=== PATIENT | female | born 1945 | race Caucasian/White ===

== ENCOUNTER 2017-09-17 23:06 | Observation (INO) | payer MEDICARE ==
[2017-09-17 23:15] VITALS: O2SAT 98
[2017-09-17 23:27] LABS: AUTOMATED NEUTROPHIL # 3.5 TH/MM3 (1.8-7.7); BASOPHIL # 0.1 TH/MM3 (0-0.2); BASOPHIL % 1.4 % (0.0-2.0); EOSINOPHIL # 0.4 TH/MM3 (0-0.4); HEMATOCRIT 40.2 % (35.0-46.0); LYMPH % 44.4 % (9.0-44.0); LYMPHOCYTE # 3.9 TH/MM3 (1.0-4.8); MEAN CELL VOLUME 85.4 FL (80.0-100.0); MEAN CORPUSCULAR HEMOGLOBIN 27.1 PG (27.0-34.0); MEAN CORPUSCULAR HGB CONC 31.7 % (32.0-36.0); MONO % 10.8 % (0.0-8.0); NEUT % 39.4 % (16.0-70.0); PLATELET COUNT 326 TH/MM3 (150-450); RED BLOOD COUNT 4.71 MIL/MM3 (4.00-5.30); RED CELL DISTRIBUTION WIDTH 14.3 % (11.6-17.2); WHITE BLOOD COUNT 8.9 TH/MM3 (4.0-11.0)
[2017-09-17] MEDS: NITROGLYCERIN 0.4 MG SL 25 TABS/BTL SL SCH ×3 (23:29→23:51)
[2017-09-17 23:30] VITALS: BP_SYST 140; BP_SYST 145; BP_DIAS 80; BP_DIAS 89; PULSE 72; RESP 20; O2SAT 98
[2017-09-17] MEDS: SODIUM CHLOR 0.9% 1000 ML INJ 1,000 ML IV SCH (23:30)
[2017-09-17] MEDS ORDERED: SODIUM CHLORIDE 0.9% FLUSH 10 ML FLUSH IVF PRN (23:30)
[2017-09-17 23:34] LABS: HEMO FLAGS DIFF FINAL
--- NOTE | 2017-09-17 23:35 | PD ---
HPI Chief Complaint: Chest Pain Time Seen by Provider: 23:17 Travel History International Travel<30 days: No Contact w/Intl Traveler<30days: No Traveled to known affect area: No History of Present Illness HPI 72-year-old female presents to the emergency department by private transportation for complaint of sharp stabbing right-sided chest pain. At home pain as 10 over 10 intensity. Hasn't really pain is 5/10 in intensity. Patient states she's had symptoms 2 weeks. Patient was seen by her primary care provider on Tuesday and diagnosed with pleurisy. Patient had a chest x- ray. Patient jem took 650 mg of aspirin prior to arrival to the emergency department. Pain radiates into her back and into her right upper extremity. No sweats no nausea vomiting but did experience shortness of breath this evening. No recent long distance travel protracted bedrest her surgical procedure no lower extremity or upper extremity swelling. Patient denies any abdominal pain. PFSH Past Medical History Narrative Medical Pleurisy; nursing notes reviewed Social History Tobacco Use: No Allergies-Medications (Allergen,Severity, Reaction): Coded Allergies: Sulfa (Sulfonamide Antibiotics) (Verified Allergy, Unknown, Anaphylaxis, 09/18/17) Reported Meds & Prescriptions Reported Meds & Active Scripts Active Reported Yuvafem Vaginal Tab (Estradiol Vaginal Tab) 10 Mcg Tab 10 Mcg VAGINAL 2XWEEK Fosamax (Alendronate Sodium) 70 Mg Tab 70 Mg PO Q7D Meloxicam 15 Mg Tab 15 Mg PO DAILY Review of Systems Except as stated in HPI: all other systems reviewed are Neg Physical Exam Narrative GENERAL: Well-developed well-nourished female in no acute distress no respiratory distress SKIN: Warm and dry. HEAD: Normocephalic. EYES: No scleral icterus. No injection or drainage. NECK: Supple, trachea midline. No JVD or lymphadenopathy. CARDIOVASCULAR: Regular rate and rhythm without murmurs, gallops, or rubs. RESPIRATORY: Breath sounds equal bilaterally. No accessory muscle use. GASTROINTESTINAL: Abdomen soft, non-tender, nondistended. MUSCULOSKELETAL: No cyanosis, or edema. BACK: Nontender without obvious deformity. No CVA tenderness. Data Data Last Documented VS Vital Signs Date Time Temp Pulse Resp B/P (MAP) Pulse Ox O2 Delivery O2 Flow Rate FiO2 09/18/17 00:00 71 20 99/63 (75) 97 12/16/17 23:30 Room Air Orders Orders Electrocardiogram (09/17/17 23:18) Basic Metabolic Panel (Bmp) (09/17/17 23:18) Ckmb (Isoenzyme) Profile (09/17/17 23:18) Complete Blood Count With Diff (09/17/17 23:18) Magnesium (Mg) (09/17/17 23:18) Prothrombin Time / Inr (Pt) (09/17/17 23:18) Act Partial Throm Time (Ptt) (09/17/17 23:18) Troponin I (09/17/17 23:18) Chest, Single Ap (09/17/17 23:18) Ecg Monitoring (09/17/17 23:18) Bilateral Bp Monitoring (09/17/17 23:18) Iv Access Insert/Monitor (09/17/17 23:18) Oximetry (09/17/17 23:18) Oxygen Administration (09/17/17 23:18) Sodium Chloride 0.9% Flush (Ns Flush) (09/17/17 23:30) Nitroglycerin Sl (Nitrostat Sl) (09/17/17 23:30) Sodium Chlor 0.9% 1000 Ml Inj (Ns 1000 M (09/17/17 23:30) CKMB (09/17/17 23:15) CKMB% (09/17/17 23:15) D-Dimer (09/17/17 23:50) Labs Laboratory Tests Test 09/17/17 23:15 White Blood Count 8.9 TH/MM3 Red Blood Count 4.71 MIL/MM3 Hemoglobin 12.7 GM/DL Hematocrit 40.2 % Mean Corpuscular Volume 85.4 FL Mean Corpuscular Hemoglobin 27.1 PG Mean Corpuscular Hemoglobin Concent 31.7 % Red Cell Distribution Width 14.3 % Platelet Count 326 TH/MM3 Mean Platelet Volume 8.8 FL Neutrophils (%) (Auto) 39.4 % Lymphocytes (%) (Auto) 44.4 % Monocytes (%) (Auto) 10.8 % Eosinophils (%) (Auto) 4.0 % Basophils (%) (Auto) 1.4 % Neutrophils # (Auto) 3.5 TH/MM3 Lymphocytes # (Auto) 3.9 TH/MM3 Monocytes # (Auto) 1.0 TH/MM3 Eosinophils # (Auto) 0.4 TH/MM3 Basophils # (Auto) 0.1 TH/MM3 CBC Comment DIFF FINAL Differential Comment Prothrombin Time 11.6 SEC Prothromb Time International Ratio 1.1 RATIO Activated Partial Thromboplast Time 24.9 SEC Blood Urea Nitrogen 14 MG/DL Creatinine 0.72 MG/DL Random Glucose 100 MG/DL Calcium Level 8.8 MG/DL Magnesium Level 2.4 MG/DL Sodium Level 138 MEQ/L Potassium Level 3.7 MEQ/L Chloride Level 104 MEQ/L Carbon Dioxide Level 26.9 MEQ/L Anion Gap 7 MEQ/L Estimat Glomerular Filtration Rate 79 ML/MIN Total Creatine Kinase 132 U/L Creatine Kinase MB 2.1 NG/ML Troponin I LESS THAN 0.02 NG/ML Exceptions Acute Myocardial Infarction ASA Not Given on Arrival: Already taken by patient 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 MDM Medical Decision Making Medical Screen Exam Complete: Yes Emergency Medical Condition: Yes Medical Record Reviewed: Yes Differential Diagnosis Chest pain, atypical chest pain, ACS, HI, PE, pneumothorax, pleurisy, costochondritis, pneumonia, pancreatitis, biliary colic, aortic dissection Narrative Course Patient placed on playground monitor with continuous pulse oximetry IV access obtained patient are taken aspirin prior to arrival to the emergency department supplemental nitroglycerin ordered @ 1200 am cp free after x 2 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
[2017-09-17 23:36] LABS: CHLORIDE 104 MEQ/L (98-107); POTASSIUM 3.7 MEQ/L (3.5-5.1); SODIUM (NA) 138 MEQ/L (136-145)
[2017-09-17 23:39] LABS: ANION GAP 7 MEQ/L (5-15); BICARBONATE 26.9 MEQ/L (21.0-32.0); BLOOD UREA NITROGEN 14 MG/DL (7-18); MAGNESIUM 2.4 MG/DL (1.5-2.5)
[2017-09-17 23:41] LABS: APTT (PATIENT) 24.9 SEC (24.3-30.1); INTERNATIONAL NORMALIZED RATIO 1.1 RATIO; PROTHROMBIN TIME - PATIENT 11.6 SEC (9.8-11.6)
[2017-09-17 23:42] LABS: GLOMERULAR FILTRATION RATE 79 ML/MIN (>89)
[2017-09-17 23:46] LABS: CREATINE KINASE 132 U/L (26-192)
--- NOTE | 2017-09-17 23:47 | RADRPT ---
EXAM DATE/TIME: 09/17/2017 23:40 [facility] COMPARISON: No previous studies available for comparison. INDICATIONS : Chest pain. MEDICAL HISTORY : None. SURGICAL HISTORY : None. ENCOUNTER: Initial ACUITY: 1 day PAIN SCORE: 8/10 LOCATION: Bilateral chest FINDINGS: A single view of the chest demonstrates the lungs to be symmetrically aerated without evidence of mas s, infiltrate or effusion. The cardiomediastinal contours are unremarkable. Osseous structures are intact. CONCLUSION: No evidence of acute cardiopulmonary disease. Dane Atkinson MD on September 17, 2017 at 23:45 Board Certified Radiologist. This report was verified electronically.
[2017-09-17 23:58] LABS: CKMB 2.1 NG/ML (0.5-3.6)
[2017-09-18] VITALS (9 sets, daily range): BP systolic 89–108; BP diastolic 55–76; PULSE 69–77; RESP 18–20; TEMP 97.2–98.7; O2SAT 68–99
[2017-09-18] MEDS ORDERED: MELO15TA20 PO (00:17)
[2017-09-18] MEDS ORDERED: ESTR1TAB78 VAGINAL (00:17)
[2017-09-18] MEDS ORDERED: FOSA70TA PO (00:17)
[2017-09-18] MEDS ORDERED: IOHEXOL 350 MG/ML 10 ML VIAL (for RAD DIAG) IVCONTRAST ONE (00:35)
[2017-09-18] MEDS ORDERED: SODIUM CHLORIDE 0.9% FLUSH 10 ML FLUSH IV FLUSH PRN (00:45)
[2017-09-18] MEDS ORDERED: NITROGLYCERIN 0.4 MG SL 25 TABS/BTL SL PRN (00:45)
[2017-09-18] MEDS ORDERED: SODIUM CHLOR 0.9% 1000 ML INJ 1,000 ML IV ONE (01:15)
--- NOTE | 2017-09-18 01:52 | RADRPT ---
EXAM DATE/TIME: 09/18/2017 01:28 [facility] COMPARISON: No previous studies available for comparison. INDICATIONS : Recent diagnosis of pleurisy. Right side chest pain and shortness of breath. IV CONTRAST: 74 cc Omnipaque 350 (iohexol) IV RADIATION DOSE: 6.46 CTDIvol (mGy) MEDICAL HISTORY : None SURGICAL HISTORY : Tubal ligation. ENCOUNTER: Initial ACUITY: 2 weeks PAIN SCALE: 5/10 LOCATION: Right chest TECHNIQUE: Volumetric scanning of the chest was performed using a pulmonary embolism protocol MIP images were re constructed. Using automated exposure control and adjustment of the mA and/or kV according to patien t size, radiation dose was kept as low as reasonably achievable to obtain optimal diagnostic quality images. DICOM format image data is available electronically for review and comparison. Follow-up recommendations for detected pulmonary nodules are based at a minimum on nodule size and pa tient risk factors according to Fleischner Society Guidelines. FINDINGS: PULMONARY ARTERIES: No filling defects are seen in the pulmonary arteries through the segmental level. LUNGS: Mild linear atelectasis and/or scarring of the left lung base. No acute pneumonia seen. No pneumothor ax. PLEURAE: There is no pleural thickening or pleural effusion. MEDIASTINUM: There is good visualization of the great vessels of the middle mediastinum. No evidence of mediastin al or hilar adenopathy/mass. Normal heart size. There is coronary artery calcification, especially le ft main and left anterior descending. MUSCULOSKELETAL: Within normal limits for patient age. MISCELLANEOUS: The visualized upper abdominal organs demonstrate no acute abnormality. CONCLUSION: 1. No pulmonary embolus. 2. Mild atelectasis. 3. Coronary artery calcification. Dane Atkinson MD on September 18, 2017 at 1:48 Board Certified Radiologist. This report was verified electronically.
[2017-09-18 04:31] LABS: CREATINE KINASE 122 U/L (26-192)
[2017-09-18 05:21] LABS: CKMB 1.7 NG/ML (0.5-3.6)
--- NOTE | 2017-09-18 07:46 | HHI.HP ---
[facility] Arsenio Chacon MD Admission Diagnosis Chest pain Diagnoses: (1) Chest pain Diagnosis: Principal Chief Complaint: Chest pain Travel History International Travel<30 Days: No Contact w/Intl Traveler <30 Da: No Traveled to Known Affected Are: No History of Present Illness Mrs. Navarro is a 72-year-old female patient with a known medical history of chronic back pain who presented to the ED with complaints of chest pain. Patient states that around 2230 last evening she was having an argument with her when she developed this sudden pain that started in her left sided back area and radiated to her right breast. Patient states that the pain was sharp and stabbing in nature, "felt like someone was stabbing her through the scapula". Pain was worse with inspiration and coughing. Patient took two aspirin at home before arrival and Nitroglycerin was given in the ED which seemed to relieve the pain. She does state that she has been having intermittent pain the past week and has seen her PCP who performed a CXR which reportedly showed pleurisy. Patient was given Meloxicam with little relief. Does admit to a chronic cough. Patient denies any recent illness including fever , chills, headache, sore throat, shortness of breath, abdominal pain, n/v/d or dysuria. Denies any previous stress testing or following with a rn ostomy. PCP is Dr. Chacon. Review of Systems Constitutional: DENIES: Fever, Chills Eyes: DENIES: Blurred vision, Diplopia Respiratory: COMPLAINS OF: Cough, DENIES: Sputum production, Shortness of breath Cardiovascular: COMPLAINS OF: Chest pain, DENIES: Palpitations Gastrointestinal: DENIES: Abdominal pain, Black stools, Bloody stools, Constipation, Diarrhea, Nausea, Vomiting Musculoskeletal: COMPLAINS OF: Back pain Hematologic/lymphatic: DENIES: Bruising Psychiatric: DENIES: Anxiety Except as stated in HPI: all other systems reviewed are Neg Past Family Social History Past Medical History Chronic back pain Past Surgical History Kyphoplasty Bilateral cataracts Tubal ligation Reported Medications Reported Meds & Active Scripts Active Reported Yuvafem Vaginal Tab (Estradiol Vaginal Tab) 10 Mcg Tab 10 Mcg VAGINAL 2XWEEK Fosamax (Alendronate Sodium) 70 Mg Tab 70 Mg PO Q7D Meloxicam 15 Mg Tab 15 Mg PO DAILY Allergies: Coded Allergies: Sulfa (Sulfonamide Antibiotics) (Verified Allergy, Unknown, Anaphylaxis, 09/18/17) Active Ordered Medications Current Medications Medications (Trade) Dose Ordered Sig/Margaret Route Start Time Stop Time Status Last Admin Sodium Chloride 1,000 ml @ 100 mls/hr Q10H IV 09/17/17 23:30 09/17/17 23:30 (NS Flush) 2 ml UNSCH PRN IV FLUSH 09/18/17 00:45 (NS Flush) 2 ml BID IV FLUSH 09/18/17 09:00 (Nitrostat Sl) 0.4 mg Q5M PRN SL 09/18/17 00:45 (Aspirin) 325 mg DAILY PO 09/18/17 09:00 (Toradol Inj) 30 mg ONCE ONCE IV PUSH 09/18/17 08:00 09/18/17 08:01 UNV Family History Maternal medical history significant for cardiovascular disease. Paternal medical history significant for lung cancer. Social History Denies any tobacco use. Admits to occasional alcohol use. Denies any illicit drug use. Physical Exam Vital Signs Vital Signs Date Time Temp Pulse Resp B/P (MAP) Pulse Ox O2 Delivery O2 Flow Rate FiO2 09/18/17 02:10 98 21 09/18/17 01:57 97.2 77 20 89/56 (67) 99 09/18/17 01:42 74 20 108/76 (87) 98 09/18/17 01:15 72 20 106/76 (86) 98 09/18/17 00:49 72 20 93/62 (72) 98 09/18/17 00:17 70 20 92/58 (69) 97 09/18/17 00:00 71 20 99/63 (75) 97 09/17/17 23:58 70 20 98 09/17/17 23:30 72 20 140/89 (106) 98 Room Air 145/80 (101) 09/17/17 23:15 98 Room Air 09/17/17 23:15 98 Room Air Physical Exam GENERAL: This is a well-nourished, well-developed patient, in no apparent distress. SKIN: No rashes, ecchymoses or lesions. Warm and dry. HEAD: Atraumatic. Normocephalic. Pupils equal round and reactive. Extraocular motions intact. No scleral icterus. No injection or drainage. Nose without bleeding. Throat without erythema, tonsillar hypertrophy or exudate. Uvula midline. Airway patent. NECK: Trachea midline. No JVD. Supple. CARDIOVASCULAR: Regular rate and rhythm without murmurs, gallops, or rubs. Reproducible pain to lateral right rib area. RESPIRATORY: Clear to auscultation. Breath sounds equal bilaterally. No wheezes , rales, or rhonchi. GASTROINTESTINAL: Abdomen soft, non-tender, nondistended. No guarding. MUSCULOSKELETAL: Extremities without clubbing, cyanosis, or edema. No joint tenderness, effusion, or edema noted. NEUROLOGICAL: Awake and alert. Cranial nerves II through XII intact. Motor and sensory grossly within normal limits. Five out of 5 muscle strength in all muscle groups. Normal speech. Laboratory Laboratory Tests Test 09/17/17 23:15 09/18/17 03:15 09/18/17 06:19 White Blood Count 8.9 Red Blood Count 4.71 Hemoglobin 12.7 Hematocrit 40.2 Mean Corpuscular Volume 85.4 Mean Corpuscular Hemoglobin 27.1 Mean Corpuscular Hemoglobin Concent 31.7 Red Cell Distribution Width 14.3 Platelet Count 326 Mean Platelet Volume 8.8 Neutrophils (%) (Auto) 39.4 Lymphocytes (%) (Auto) 44.4 Monocytes (%) (Auto) 10.8 Eosinophils (%) (Auto) 4.0 Basophils (%) (Auto) 1.4 Neutrophils # (Auto) 3.5 Lymphocytes # (Auto) 3.9 Monocytes # (Auto) 1.0 Eosinophils # (Auto) 0.4 Basophils # (Auto) 0.1 CBC Comment DIFF FINAL Differential Comment Prothrombin Time 11.6 Prothromb Time International Ratio 1.1 Activated Partial Thromboplast Time 24.9 D-Dimer Quantitative (PE/DVT) 0.55 Blood Urea Nitrogen 14 Creatinine 0.72 Random Glucose 100 Calcium Level 8.8 Magnesium Level 2.4 Sodium Level 138 Potassium Level 3.7 Chloride Level 104 Carbon Dioxide Level 26.9 Anion Gap 7 Estimat Glomerular Filtration Rate 79 Total Creatine Kinase 132 122 Creatine Kinase MB 2.1 1.7 Troponin I LESS THAN 0.02 LESS THAN 0.02 Result Diagram: 09/17/17 2315 09/17/[address] Angiography 09/18/17 0000 Signed Impressions: Service Date/Time: Monday, September 18, 2017 01:28 - CONCLUSION: 1. No pulmonary embolus. 2. Mild atelectasis. 3. Coronary artery calcification. Dane Atkinson MD Chest X-Ray 09/17/17 2318 Signed Impressions: Service Date/Time: Sunday, September 17, 2017 23:40 - CONCLUSION: No evidence of acute cardiopulmonary disease. Dane Atkinson MD Septic Shock Reassessment Septic shock perfusion: reassessment completed Caprini VTE Risk Assessment Caprini VTE Risk Assessment: Mod/High Risk (score >= 2) Caprini Risk Assessment Model Point Value = 1 Point Value = 2 Point Value = 3 Point Value = 5 Age 41-60 Minor surgery BMI > 25 kg/m2 Swollen legs Varicose veins or History of unexplained or recurrent spontaneous Oral contraceptives or hormone replacement Sepsis (< 1 month) Serious lung disease, including pneumonia (< 1 month) Abnormal pulmonary function Acute myocardial infarction Congestive heart failure (< 1 month) History of inflammatory bowel disease Medical patient at bed rest Age 61-74 Arthroscopic surgery Major open surgery (> 45 min) Laparoscopic surgery (> 45 min) Malignancy Confined to bed (> 72 hours) Immobilizing plaster cast Central venous access Age >= 75 History of VTE Family history of VTE Factor V Leiden Prothrombin [id number] Lupus anticoagulant Anticardiolipin antibodies Elevated serum homocysteine Heparin-induced thrombocytopenia Other congenital or acquired thrombophilia Stroke (< 1 month) Elective arthroplasty Hip, pelvis, or leg fracture Acute spinal cord injury (< 1 month) Prophylaxis Regimen Total Risk Factor Score Risk Level Prophylaxis Regimen 0-1 Low Early ambulation 2 Moderate Order ONE of the following: *Sequential Compression Device (SCD) *Heparin 5000 units SQ BID 3-4 Higher Order ONE of the following medications: *Heparin 5000 units SQ TID *Enoxaparin/Lovenox 40 mg SQ daily (WT < 150 kg, CrCl > 30 mL/min) *Enoxaparin/Lovenox 30 mg SQ daily (WT < 150 kg, CrCl > 10-29 mL/min) *Enoxaparin/Lovenox 30 mg SQ BID (WT < 150 kg, CrCl > 30 mL/min) AND/OR *Sequential Compression Device (SCD) 5 or more Highest Order ONE of the following medications: *Heparin 5000 units SQ TID (Preferred with Epidurals) *Enoxaparin/Lovenox 40 mg SQ daily (WT < 150 kg, CrCl > 30 mL/min) *Enoxaparin/Lovenox 30 mg SQ daily (WT < 150 kg, CrCl > 10-29 mL/min) *Enoxaparin/Lovenox 30 mg SQ BID (WT < 150 kg, CrCl > 30 mL/min) AND *Sequential Compression Device (SCD) Assessment and Plan Problem List: (1) Chest pain ICD Code: R07.9 - Chest pain, unspecified Status: Acute Plan: Patient has been admitted to the chest pain center. Serial EKGs and serial troponins have been ordered for ruling out ACS purposes. First and second troponin negative, awaiting third. Follow. Denies any further chest pain. States she feels much better. A nuclear stress test was offered and advised patient that it would be best to investigate further with a stress test to rule out any further possibility of ischemia. Patient desires to go home and to follow up with her PCP. She understands the importance of further testing but is declining at this time. I advised patient that if pain were to return to please come back to the ED. Patient is stable at this time and will be discharged after the third set of enzymes have resulted. If negative will DC with recommendations to follow with her PCP and her diagnosis of pleurisy. I did start patient on Aspirin daily for CAD prevention and her risk factors of age and family history. Fanta Christian Sep 18, 2017 07:46
[2017-09-18] MEDS ORDERED: ASPI81CH7 CHEW (07:48)
--- NOTE | 2017-09-18 07:49 | HHI.DCPOC ---
Discharge Care Plan Diagnosis: (1) Chest pain Your Health Problems Are: Chest Pain Goals to Promote Your Health * To prevent worsening of your condition and complications * To maintain your health at the optimal level Directions to Meet Your Goals Take your medications as prescribed Follow your dietary instruction Follow activity as directed Keep your appointments as scheduled Take your immunizations and boosters as scheduled If your symptoms worsen call your PCP, if no PCP go to Urgent Care Center or Emergency Room Smoking is Dangerous to Your Health. Avoid second hand smoke Call the 24-hour hour crisis hotline for domestic abuse at Fanta Christian Sep 18, 2017 07:49
[2017-09-18] MEDS ORDERED: KETOROLAC TROMETHAMINE 30 MG/ML (IVP) VIAL IV PUSH ONE (08:00)
[2017-09-18 08:01] LABS: CREATINE KINASE 89 U/L (26-192)
[2017-09-18] MEDS ORDERED: SODIUM CHLORIDE 0.9% FLUSH 10 ML FLUSH IV FLUSH SCH (09:00)
[2017-09-18] MEDS ORDERED: ASPIRIN 325 MG TAB PO SCH (09:00)
[2017-09-18] MEDS: SODIUM CHLOR 0.9% 1000 ML INJ 1,000 ML IV SCH (10:09)
--- NOTE | 2017-09-18 10:31 | EKG ---
Date Performed: 09/18/2017 Time Performed: 05:05:07 PTAGE: 72 years EKG: Sinus rhythm NONSPECIFIC T-WAVE ABNORMALITY BORDERLINE ECG PREVIOUS TRACING : 09/18/2017 02.22 No significant change from previous tracing noted. DOCTOR: Andrew Villela Interpretating Date/Time 09/18/2017 10:31:33
--- NOTE | 2017-09-18 10:39 | EKG ---
Date Performed: 09/18/2017 Time Performed: 02:22:02 PTAGE: 72 years EKG: Sinus rhythm NORMAL ECG PREVIOUS TRACING : 09/17/2017 23.14 Compared to previous tracing, nonspecific ST abnormality bill s resolved. DOCTOR: Andrew Villela Interpretating Date/Time 09/18/2017 10:39:00
--- NOTE | 2017-09-18 10:45 | EKG ---
Date Performed: 09/17/2017 Time Performed: 23:14:37 PTAGE: 72 years EKG: Sinus rhythm POSSIBLE LEFT ATRIAL ENLARGEMENT NONSPECIFIC ST & T-WAVE ABNORMALITY BORDERLINE ECG NO PREVIOUS TRACING DOCTOR: Andrew Villela Interpretating Date/Time 09/18/2017 10:43:42
== END 2017-09-18 11:20 | disposition home or self-care (01) ==
LOC: PHED 23:06 → PHEDA 09-18 00:34 → PH3A 09-18 01:48
PROVIDERS: ADMIT Hospitalist; ATTEND Hospitalist
DX: R07.9 Chest pain, unspecified (principal); I25.10 Atherosclerotic heart disease of native coronary artery without angina pectoris; M54.9 Dorsalgia, unspecified; G89.29 Other chronic pain; R94.31 Abnormal electrocardiogram [ECG] [EKG]; R09.1 Pleurisy; J98.11 Atelectasis
CPT/HCPCS: 71010; 71275; 80048; 82550; 82552; 83735; 84484; 85025; 85379; 85610; 85730; 93005; 96361; 96374; 96376; 99285; G0378; J1885; J7030; Q9967